=== PATIENT | male | born 1980 | race Caucasian/White ===

== ENCOUNTER → 2016-09-10 | Outpatient (CLI) | payer OTHER, MEDICAID ==
[~2016-09-10] MED LIST: EFFEXOR 50M50 MG/TAB PO; FLEXERIL 1010 MG/TAB PO; IBU800 M1 PO; NAPROSYN500 MG PO; NORCO 325 MG-51 TAB PO; NYSTATIN 100MU/M1 ML PO; OXY IR5 MG PO; PERCOCET 325 MG1 TA2 PO; VICODIN 5/300 PO; VICODIN ES 7.5 PO; ZANTAC 150MG T150 MG PO; ZANTAC 300300 MG PO; ZOFRAN ODT4 MG PO
== END ==
LOC: COL.RAD 09-04 09:30
DX: M25.551 Pain in right hip (principal)
CPT/HCPCS: J3301; Q9967

== ENCOUNTER 2017-11-22 00:20 | Emergency (ER) | payer OTHER ==
[~2017-11-22] VITALS: Ht 180.3 cm; Wt 102.3 kg
[2017-11-22 00:31] VITALS: BP 131/94; TEMP 98.4
[2017-11-22] MEDS ORDERED: PHENERGAN W/CO120 M1 PO (01:43)
[2017-11-22 01:50] VITALS: PULSE 99
== END 2017-11-22 01:50 | disposition home or self-care (01) ==
LOC: COL.ER 00:20
DX: J02.9 Acute pharyngitis, unspecified (principal); I10 Essential (primary) hypertension; Z88.8 Allergy status to other drugs, medicaments and biological substances

== ENCOUNTER 2017-12-11 21:29 | Emergency (ER) | payer OTHER ==
[~2017-12-11] VITALS: Ht 152.4 cm; Wt 103.2 kg
[~2017-12-11 21:29] MED LIST changes: +PHENERGAN W/CO120 M1 PO
[2017-12-11 21:35] VITALS: TEMP 98.5
[2017-12-11] MEDS ORDERED: AMOXICILLIN 50500 MG PO (22:28)
[2017-12-11 22:42] VITALS: BP 132/88; PULSE 101
== END 2017-12-11 22:57 | disposition home or self-care (01) ==
LOC: COL.ER 21:29
DX: J02.0 Streptococcal pharyngitis (principal); I10 Essential (primary) hypertension; F17.210 Nicotine dependence, cigarettes, uncomplicated; Z88.5 Allergy status to narcotic agent

== ENCOUNTER 2018-03-17 08:13 | Emergency (ER) | payer OTHER ==
[~2018-03-17] VITALS: Ht 180.3 cm; Wt 106.8 kg
[~2018-03-17 08:13] MED LIST changes: +AMOXICILLIN 50500 MG PO
[2018-03-17 08:18] VITALS: TEMP 99.6
[2018-03-17 08:45] LABS: BASO % 0.2 % (0.0-2.0); EOS # 0.1 (0.0-0.7); EOS % 0.8 % (0-4.0); GRAN # 13.1 (1.4-6.5); GRAN % 87.2 % (42.2-75.2); HEMATOCRIT 48.2 % (42.0-52.0); HEMOGLOBIN 15.8 g/dl (13.5-18.0); LYMPH # 0.9 (1.2-3.4); MEAN CELL VOLUME 82 fl (80.0-100.0); MEAN CORPUSCULAR HEMOGLOBIN 27 pg (27.0-31.0); MEAN CORPUSCULAR HGB CONC 33 g/dl (33.0-37.0); MEAN PLATELET VOLUME 10.2 fl (7.4-10.4); MONO # 0.8 (0.1-0.6); MONO % 5.3 % (1.7-9.3); PLATELET COUNT 293 K/mm3 (130-400); REDCELL DISTRIBUTION WIDTH-CV 12.9 % (11.5-14.5)
[2018-03-17 08:57] LABS: ALBUMIN 4.1 gm/dL (3.5-5.0); BILIRUBIN,TOTAL 0.7 mg/dL (0.0-1.0); CALCIUM 8.7 mg/dL (8.4-10.2); CREATININE, serum 0.97 mg/dL (0.66-1.25); POTASSIUM 3.8 mmol/L (3.4-5.0); TOTAL PROTEIN 6.9 gm/dL (6.4-8.2)
[2018-03-17] MEDS ORDERED: ZOFRAN ODT4 MG PO (11:50)
[2018-03-17 11:53] VITALS: BP 101/68; PULSE 90
== END 2018-03-17 13:37 | disposition home or self-care (01) ==
LOC: COL.ER 08:13
PROVIDERS: Physician Assistant
DX: K52.9 Noninfective gastroenteritis and colitis, unspecified (principal); Z90.49 Acquired absence of other specified parts of digestive tract
CPT/HCPCS: J0780; J1885; J2270; J2405; J2765; J7030

== ENCOUNTER → 2018-06-17 | Outpatient (CLI) | payer OTHER | LOC: COL.RAD 08:13 | DX: M25.551 Pain in right hip (principal) | CPT/HCPCS: J3301; Q9967 ==

== ENCOUNTER 2018-07-21 17:10 | Emergency (ER) | payer OTHER ==
[~2018-07-21] VITALS: Ht 180.3 cm; Wt 106.8 kg
[2018-07-21 17:18] VITALS: TEMP 97.6
[2018-07-21 18:13] LABS: BASO % 0.1 % (0.0-2.0); EOS # 0.1 (0.0-0.7); EOS % 1.2 % (0-4.0); GRAN # 4.3 (1.4-6.5); GRAN % 62.1 % (42.2-75.2); HEMATOCRIT 47.4 % (42.0-52.0); HEMOGLOBIN 15.1 g/dl (13.5-18.0); LYMPH # 1.9 (1.2-3.4); LYMPH % 26.9 % (20.0-51.0); MEAN CELL VOLUME 86 fl (80.0-100.0); MEAN CORPUSCULAR HEMOGLOBIN 27 pg (27.0-31.0); MEAN CORPUSCULAR HGB CONC 32 g/dl (33.0-37.0); MEAN PLATELET VOLUME 10.1 fl (7.4-10.4); MONO # 0.6 (0.1-0.6); MONO % 9.3 % (1.7-9.3); PLATELET COUNT 330 K/mm3 (130-400); RED BLOOD COUNT 5.54 M/mm3 (4.20-5.60); REDCELL DISTRIBUTION WIDTH-CV 13.5 % (11.5-14.5)
[2018-07-21 18:27] LABS: BILIRUBIN,TOTAL 0.4 mg/dL (0.0-1.0); CALCIUM 9.2 mg/dL (8.4-10.2); CREATININE, serum 0.92 (0.66-1.25); POTASSIUM 3.8 mmol/L (3.4-5.0); TOTAL PROTEIN 6.8 gm/dL (6.4-8.2)
[2018-07-21 18:37] VITALS: BP 125/85
[2018-07-21] MEDS ORDERED: ZOFRAN ODT4 MG PO (20:04)
[2018-07-21 20:11] VITALS: PULSE 78
== END 2018-07-21 20:11 | disposition home or self-care (01) ==
LOC: COL.ER 17:10
PROVIDERS: Nurse Practitioner
DX: R19.7 Diarrhea, unspecified (principal); R11.2 Nausea with vomiting, unspecified; I10 Essential (primary) hypertension; Z90.49 Acquired absence of other specified parts of digestive tract; Z88.5 Allergy status to narcotic agent; Z87.891 Personal history of nicotine dependence
CPT/HCPCS: J1885; J2405; J2550; J7030

== ENCOUNTER → 2018-09-11 | Emergency (ER) | payer OTHER ==
[~2018-09-11] VITALS: Ht 180.3 cm; Wt 104.5 kg
[2018-09-11 01:14] VITALS: TEMP 97.4
[2018-09-11 01:26] LABS: BASO % 0.4 % (0.0-2.0); EOS # 0.2 (0.0-0.7); EOS % 2.4 % (0-4.0); GRAN # 4.2 (1.4-6.5); GRAN % 45.9 % (42.2-75.2); HEMATOCRIT 45.1 % (42.0-52.0); HEMOGLOBIN 14.4 g/dl (13.5-18.0); LYMPH # 4.1 (1.2-3.4); LYMPH % 44.5 % (20.0-51.0); MEAN CELL VOLUME 85 fl (80.0-100.0); MEAN CORPUSCULAR HEMOGLOBIN 27 pg (27.0-31.0); MEAN CORPUSCULAR HGB CONC 32 g/dl (33.0-37.0); MEAN PLATELET VOLUME 10.1 fl (7.4-10.4); MONO # 0.6 (0.1-0.6); MONO % 6.4 % (1.7-9.3); PLATELET COUNT 267 K/mm3 (130-400); RED BLOOD COUNT 5.33 M/mm3 (4.20-5.60); REDCELL DISTRIBUTION WIDTH-CV 13.2 % (11.5-14.5)
[2018-09-11 01:34] LABS: ALANINE AMINOTRANSFERASE 24 U/L (21-72); ALBUMIN 3.9 gm/dL (3.5-5.0); ALKALINE PHOSPHATASE 69 U/L (50-136); ANION GAP 11 mmol/L (7-16); AST,SGOT 29 U/L (15-37); BILIRUBIN,TOTAL 0.3 mg/dL (0.0-1.0); BLOOD UREA NITROGEN 19 mg/dL (9-20); CALCIUM 8.9 mg/dL (8.4-10.2); CARBON DIOXIDE 22 mmol/L (22-30); CHLORIDE 110 mmol/L (98-107); CREATININE, serum 0.89 (0.66-1.25); GLUCOSE 97 mg/dL (74-106); POTASSIUM 4.2 mmol/L (3.4-5.0); SODIUM 142 mmol/L (137-145); TOTAL PROTEIN 6.7 gm/dL (6.4-8.2)
[2018-09-11 01:46] LABS: TROPONIN-I < 0.012 ng/mL (0.000-0.035)
[2018-09-11 04:54] VITALS: BP 126/91; PULSE 88
== END ==
LOC: COL.ER 01:02
PROVIDERS: Emergency Medicine
DX: R07.9 Chest pain, unspecified (principal); R06.00 Dyspnea, unspecified; E66.9 Obesity, unspecified; Z87.891 Personal history of nicotine dependence; Z86.79 Personal history of other diseases of the circulatory system
CPT/HCPCS: J1885

== ENCOUNTER 2019-09-22 11:35 | Emergency (ER) | payer SELFPAY ==
[~2019-09-22] VITALS: Ht 180.3 cm; Wt 100.0 kg
[2019-09-22 11:40] VITALS: BP 127/87; TEMP 97.7
[2019-09-22 12:44] VITALS: PULSE 71
== END 2019-09-22 12:44 | disposition home or self-care (01) ==
LOC: COL.ER 11:35
DX: S60.022A Contusion of left index finger without damage to nail, initial encounter (principal); Z23 Encounter for immunization; W23.0XXA Caught, crushed, jammed, or pinched between moving objects, initial encounter; Y92.59 Other trade areas as the place of occurrence of the external cause

== ENCOUNTER 2020-04-03 08:33 | Emergency (ER) | payer OTHER ==
[~2020-04-03] VITALS: Ht 180.3 cm; Wt 104.5 kg
[2020-04-03 08:56] VITALS: BP 137/96; TEMP 98.2
[2020-04-03 10:04] VITALS: PULSE 75
== END 2020-04-03 10:04 | disposition home or self-care (01) ==
LOC: COL.ER 08:33
DX: M79.671 Pain in right foot (principal); Z90.49 Acquired absence of other specified parts of digestive tract; Z90.89 Acquired absence of other organs

== ENCOUNTER 2020-05-23 11:30 | Day surgery (SDC) | payer OTHER ==
[~2020-05-23] VITALS: Ht 180.3 cm; Wt 108.0 kg
[2020-05-23 11:57] VITALS: BP 135/86; PULSE 77; TEMP 97.3
[2020-05-23] MEDS ORDERED: TYLENOL 500MG500 MG PO (12:03)
[2020-05-23] MEDS ORDERED: ADVIL200 MG PO (12:04)
--- NOTE | 2020-05-23 12:04 | NUR ---
TO RM 7 AT 1138- CALL LIGHT IN [facility]ACH WILL BE CALLED FOR [facility] HOME
[2020-05-23] MEDS ORDERED: NORCO 325 MG-51 TAB PO (14:17)
[2020-05-23 15:15] VITALS: BP 122/78; PULSE 82; TEMP 97.1
--- NOTE | 2020-05-23 15:15 | NUR ---
TO RM 7 PER CART FROM PACU. ALERT ORIENTED X3, TALKING TO NURSES. C/O PAIN /10. DRESSINGS OVER INCISION SITES. SCROTAL SUPPORT IN PLACE.
[2020-05-23 15:30] VITALS: BP 123/85; PULSE 86
--- NOTE | 2020-05-23 15:30 | NUR ---
RECEIVED WATER AND TAKING SIPS. C/O PAIN INCREASED TO 7/10.
[2020-05-23 15:45] VITALS: BP 118/74; PULSE 82
--- NOTE | 2020-05-23 15:45 | NUR ---
RECEUVED NORCO 5MG 1 TAB. PATIENT TALKING TO ON CELL PHONE.
--- NOTE | 2020-05-23 16:00 | NUR ---
AMBULATED TO BATHROOM WITH ASSIST AND TOLERATED WELL.VOIDED AND AMBULATED BACK TO . RECEIVED JELLO AND ATE 100%. PATIENT C/O SORE THROAT AND STATED IT IS NORMAL FOR HIM TO HAVE SORE THROAT AFTER SURGERY.
[2020-05-23 16:15] VITALS: BP 130/72; PULSE 77
--- NOTE | 2020-05-23 16:15 | NUR ---
RESTING QUIETLY STATED HE FELT READY TO GO HOME.
--- NOTE | 2020-05-23 16:25 | NUR ---
RECEIVED DISCHARGE INSTRUCTIONS AND VERBALIZED UNDERSTANDING. CALLED R[facility] TO PICK HIM UP. DISCONTINUED IV AND INT- CATHETER INTACT ASSISTED PATIENT DRESSED.
--- NOTE | 2020-05-23 16:45 | NUR ---
DISCHARGED PER WC BY NURSING STAFF TO PRIVATE CAR IN CARE OF AND SON.
[2020-05-23 17:09] VITALS: BP 122/78; PULSE 81
== END 2020-05-23 16:57 | disposition home or self-care (01) ==
LOC: SDCO 11:30
DX: K40.20 Bilateral inguinal hernia, without obstruction or gangrene, not specified as recurrent (principal); D17.6 Benign lipomatous neoplasm of spermatic cord; Z20.822 Contact with and (suspected) exposure to COVID-19; Z87.891 Personal history of nicotine dependence
CPT/HCPCS: C1781; J0330; J1100; J2250; J2405; J2704; J3010; J7120

== ENCOUNTER 2020-11-23 19:35 | Emergency (ER) | payer OTHER ==
[~2020-11-23] VITALS: Ht 180.3 cm; Wt 102.3 kg
[~2020-11-23 19:35] MED LIST changes: +ADVIL200 MG PO; +TYLENOL 500MG500 MG PO
[2020-11-23 20:21] VITALS: TEMP 97.3
[2020-11-23 20:35] LABS: STREP SCREEN NEGATIVE
[2020-11-23 21:10] VITALS: BP 132/68; PULSE 80
== END 2020-11-23 21:18 | disposition home or self-care (01) ==
LOC: COL.ER 19:35
PROVIDERS: Emergency Medicine
DX: J02.9 Acute pharyngitis, unspecified (principal); Z20.822 Contact with and (suspected) exposure to COVID-19
CPT/HCPCS: J8540